=== PATIENT | female | born 1940 | race Caucasian/White ===

== ENCOUNTER 2020-04-21 00:34 | Emergency (ER) | payer MEDICARE ==
[~2020-04-21] VITALS: Ht 149.9 cm; Wt 68.0 kg
[2020-04-21] MEDS ORDERED: ASPIRIN 81 MG CHEW TAB PO ONE (01:00)
[2020-04-21] MEDS ORDERED: CLOPIDOGREL BISULFATE 75 MG TAB PO ONE (01:15)
[2020-04-21] MEDS ORDERED: ASPIRIN 81 MG CHEW TAB ONE (01:36)
--- NOTE | 2020-04-21 01:53 | Diagnostic Imaging Report ---
EXAMINATION: CXR 1 W - [facility] INDICATION: Chest pain, shortness of breath. COMPARISON: None FINDINGS: TUBES and LINES: None. LUNGS: Lungs are well inflated. Central vascular congestion. Mild patchy bibasilar opacities, likely atelectasis. No evidence of lobar pneumonia or pulmonary edema. PLEURA: No pleural effusion or pneumothorax. HEART AND MEDIASTINUM: The cardiomediastinal silhouette is mildly enlarged.There are atherosclerotic calcifications within the aorta. BONES AND SOFT TISSUES: No acute osseous lesion. Soft tissues are unremarkable. UPPER ABDOMEN: No free air under the diaphragm. IMPRESSION: Cardiomegaly with central vascular congestion. No evidence of pulmonary edema. Signed by: Dr. Ken Duran MD on 04/21/2020 1:49 AM
[2020-04-21] MEDS ORDERED: CLOPIDOGREL BISULFATE 75 MG TAB ONE (02:06)
[2020-04-21] MEDS ORDERED: FUROSEMIDE INJ 10 MG/ML 4 ML VIAL IV STA (02:27)
[2020-04-21] MEDS ORDERED: CEFTRIAXONE SOD 1 GM/NS 50 ML 50 ML IV STA (02:27)
[2020-04-21] MEDS ORDERED: ENOXAPARIN SODIUM INJ 100 MG/ML SYR SC STA (02:27)
[2020-04-21] MEDS ORDERED: ENOXAPARIN SODIUM INJ 100 MG/ML SYR SC ONE (02:45)
[2020-04-21] MEDS ORDERED: CEFTRIAXONE SOD 1 GM/NS 50 ML 50 ML IV ONE (02:53)
[2020-04-21] MEDS ORDERED: FUROSEMIDE INJ 10 MG/ML 4 ML VIAL ONE (02:53)
--- NOTE | 2020-04-21 03:13 | Emergency Department Note ---
History of Present Illnes History of Present Illness Chief Complaint: sob History of Present Illness This is a 79 year old female. was doing well until 1 day ago then fatigue, bodyaches, then sob then intermittent rgt neck pain. pt has been off of her medications for 2 months. no cp Historian: Patient Arrival Mode: Car History limited by: condition of the patient (normal) [place] Required: No Onset (how long ago): day(s) (1) Location: sob Quality: mild Radiation: non-radiation Severity: mild Onset quality: gradual Duration (how long): day(s) (1) Timing of current episode: intermittent Progression: worsening Chronicity: recurrent Context: recent illness, recent surgery, recent immobilization, recent travel, trauma/injury, new medications, hx of DVT/PE, non-compliance w/ medications Relieving factors: rest Exacerbating factors: movement Associated symptoms: shortness of breath Treatments prior to arrival: none Past Medical/Family History Physician Review I have reviewed the patient's past medical and family history. Any updates have been documented here. Past Medical History Recent Fever: No Clinical Suspicion of Infectio: No New/Unexplained Change in Ment: No Past Medical History: Hypertension, CHF, A-Fib, Hypothyroidism, GERD Other Medical History: RA, HIGH CHOLESTEROL Past Surgical History: Cholecysctectomy Other Surgery: RECTOSEAL, BLADDER LIFT X2, CARDIAC STENTS X2 Social History Smoking Cessation: Never Smoker Alcohol Use: None Any Illegal Drug Use: No TB Exposure/Symptoms: No Physically hurt or threatened: No Other Any Pre-Existing Lines (PICC,: No Is patient up to date on immun: Yes Last Flu: 07/16 Last Pneumovax: 07/16 Review of Systems Review of Systems Constitutional: as per HPI, other (fatigue) EENTM: no symptoms Cardiovascular: no symptoms Respiratory: as per HPI Gastrointestinal: no symptoms Genitourinary: no symptoms Musculoskeletal: no symptoms Neurological: no symptoms Psychological: no symptoms Endocrine: no symptoms Hematological/Lymphatic: no symptoms Review of other systems All other systems reviewed and negative. Physical Exam Related Data Allergies: Coded Allergies: codeine (Verified Allergy, Unknown, ITCHING, 04/21/20) Triage Vital Signs Vital Signs Date Time Temp Pulse Resp B/P (MAP) Pulse Ox O2 Delivery O2 Flow Rate FiO2 04/21/20 00:40 97.5 69 18 179/93 98 Vital signs reviewed: Yes Physical Exam CONSTITUTIONAL Constitutional: well-developed, well-nourished HENT HENT: normocephalic, atraumatic, oropharynx clear/moist, nose normal HENT L/R: left ext ear normal, right ext ear normal EYES Eyes: PERRL, conjunctivae normal NECK Neck: ROM normal PULMONARY Pulmonary: effort normal, rales (at the bases) CARDIOVASCULAR Cardiovascular: irregular rhythm (irregular/irregular rate and rhythm), heart sounds normal, capillary refill normal, normal rate, palpable pulses GASTROINTESTINAL Abdominal: soft, nontender, bowel sounds normal GENITOURINARY Genitourinary: exam deferred SKIN Skin: warm, dry MUSCULOSKELETAL Musculoskeletal: ROM normal NEUROLOGICAL Neurological: alert, oriented x 3, no gross motor or sensory deficits PSYCHOLOGICAL Psychological: mood/affect normal, judgement normal Results Laboratory Lab results reviewed: Yes (cbc/cmp/coags/cardiac enzymes normal, except bnp elevated and ua= +leuks/nitrites) Imaging Imaging results reviewed: Yes (cardiomegaly/) Diagnostics Tests Diagnostic test(s) reviewed: Yes (ekg afib, rate=72, normal st/t waves) Critical Care Time Subsequent provider I assumed direction of critical care for this patient from another provider of my specialty. Assessment & Plan Reassessment Reassessment symptoms have resolved s/p meds. pt is on plavix and has stopped coumadin and or eliquis due to gi bleed. Assessment & Plan Final Impression: (1) CHF exacerbation (2) UTI (urinary tract infection) (3) Noncompliance with medication regimen (4) Chronic atrial fibrillation Assessment & Plan take refill of all medications. return if you get worse Depart Disposition: HOME, SELF-CARE Last Vital Signs Date Time Temp Pulse Resp B/P (MAP) Pulse Ox O2 Delivery O2 Flow Rate FiO2 04/21/20 02:20 61 18 164/79 97 04/21/20 00:40 97.5 Home Meds Active Scripts Furosemide (LASIX) 20 Mg Tablet, 20 MG PO BID, #60 TAB 1 Refill Prov:CHAYO CODY 04/21/20 Pitavastatin Calcium (LIVALO) 2 Mg Tablet, 2 MG PO DAILY, #30 TAB 1 Refill Prov:CHAYO CODY 04/21/20 Cefdinir (OMNICEF) 300 Mg Capsule, 300 MG PO BID, #20 CAP Prov:CHAYO CODY SAIMA 04/21/20 Fluoxetine Hcl (FLUOXETINE HCL) 20 Mg Capsule, 20 MG PO DAILY, #30 CAP 1 Refill Prov:CHAYO CODY 04/21/20 Levalbuterol Hcl (XOPENEX) 1.25 Mg/3 Ml Vial.neb, 1.25 MG NEB Q4HR PRN for SHORTNESS OF BREATH, #90 VIAL 1 Refill Prov:CHAYO CODY SAIMA 04/21/20 Budesonide/Formoterol Fumarate (SYMBICORT 160-4.5 MCG INHALER) 10.2 Gm Hfa.aer.ad, 2 INH PO Q12H, #1 INH 1 Refill Prov:CHAYO CODY SAIMA 04/21/20 Ca Cmb 1/Vit D3/B-6/Fa/B12/Av (VITAMIN D3-ALOE 1,000 UNIT TAB) 1 Each Tablet, 1 TAB PO DAILY, #30 TAB 1 Refill Prov:NIKKI CODYJacobo LANDAVERDE 04/21/20 Trazodone Hcl (TRAZODONE HCL) 50 Mg Tablet, 50 MG PO DAILY, #30 TAB 1 Refill Prov:NIKKI CODYJacobo LANDAVERDE 04/21/20 Potassium Chloride (POTASSIUM CHLORIDE) 20 Meq Tab.er.prt, 20 MG PO DAILY, #30 TAB 1 Refill Prov:CHAYO CODY SAIMA 04/21/20 Pantoprazole Sodium* (PROTONIX) 40 Mg Tablet.dr, 40 MG PO DAILY for 30 Days, #30 TAB 1 Refill Prov:NIKKI CODYJacobo LANDAVERDE 04/21/20 Metoprolol Succinate (METOPROLOL SUCCINATE) 25 Mg Tab.er.24h, 25 TAB PO DAILY, #30 TAB 1 Refill Prov:NIKKI CODYJacobo LANDAVERDE 04/21/20 Levothyroxine Sodium (LEVOTHYROXINE SODIUM) 88 Mcg Tablet, 88 MCG PO DAILY, #30 TAB 1 Refill Prov:NIKKI CODYJacobo LANDAVERDE 04/21/20 Amiodarone Hcl (AMIODARONE HCL) 200 Mg Tablet, 100 MG PO DAILY, #30 1 Refill Prov:NIKKI CODYJacobo LANDAVERDE 04/21/20 Albuterol Sulf* (PROAIR HFA INHALER*) 8.5 Gm Inh, 2 INH PO Q4HR PRN for SHORTNESS OF BREATH, #1 INH 1 Refill dispense with spacer Prov:CHAYO CODY 04/21/20 Medications in the ED Aspirin 324 mg ONCE ONCE PO Last administered on 04/21/20at 01:30; Admin Dose 324 MG; Start 04/21/20 at 01:00; Stop 04/21/20 at 01:01; Status UNV Clopidogrel Bisulfate 75 mg ONCE ONCE PO Last administered on 04/21/20at 01:58; Admin Dose 75 MG; Start 04/21/20 at 01:15; Stop 04/21/20 at 01:16; Status UNV CHAYO CODY April 21, 2020 03:13
--- NOTE | 2020-04-21 03:20 | NUR ---
DC'D SL WITHOUT DIFF. PT TOLERATED WELL. PT STATES SHE IS FEELING MUCH BETTER. NO COMPLAINTS AT THIS TIME.
[2020-04-21] MEDS ORDERED: LIVALO2 MG PO (03:34)
[2020-04-21] MEDS ORDERED: TRAZODONE HCL50 MG PO (03:34)
[2020-04-21] MEDS ORDERED: VITAMIN D3-ALO1 EACH PO (03:34)
[2020-04-21] MEDS ORDERED: LEVOTHYROXINE88 MCG PO (03:34)
[2020-04-21] MEDS ORDERED: CEFDINIR300 MG PO (03:34)
[2020-04-21] MEDS ORDERED: POTASSIUM CHLO20 ME1 PO (03:34)
[2020-04-21] MEDS ORDERED: AMIODARONE HCL200 MG PO (03:34)
[2020-04-21] MEDS ORDERED: PROAIR HFA INH8.5 GM PO (03:34)
[2020-04-21] MEDS ORDERED: PANTOPRAZOLE SO40 MG PO (03:34)
[2020-04-21] MEDS ORDERED: FLUOXETINE HCL20 MG PO (03:34)
[2020-04-21] MEDS ORDERED: XOPENEX1.25 MG/3 NEB (03:34)
[2020-04-21] MEDS ORDERED: SYMBICORT 16010.2 GM PO (03:34)
[2020-04-21] MEDS ORDERED: METOPROLOL SUCC25 MG PO (03:34)
[2020-04-21 03:48] VITALS: BP 161/80
[2020-04-21] MEDS ORDERED: LASIX20 MG PO (03:48)
== END 2020-04-21 03:48 | disposition home or self-care (01) ==
LOC: FSED 00:34
DX: R06.02 Shortness of breath (principal); I50.9 Heart failure, unspecified; I48.20 Chronic atrial fibrillation, unspecified; N39.0 Urinary tract infection, site not specified; Z91.14 Patient's other noncompliance with medication regimen
CPT/HCPCS: 71045; 80053; 81003; 82553; 83880; 84484; 85025; 85379; 85610; 93005; 99284; J0696; J1650; J1940